=== PATIENT | male | born 2000 | race Caucasian/White ===

== ENCOUNTER 2021-10-26 06:26 | Emergency (ER) | payer SELFPAY ==
[~2021-10-26] VITALS: Ht 195.6 cm; Wt 127.0 kg
--- NOTE | 2021-10-26 08:00 | NUR ---
[id number]. L KNEE PAIN AND SWELLING S/P TRIP AND FALL. DENIED HT. NO APPARENT DEFORMITY NOTED. WILL CONTINUE TO MONITOR THE PATIENT.
[2021-10-26] MEDS ORDERED: HYDR-4303 PO (08:37)
[2021-10-26] MEDS ORDERED: HYDROCODONE/APAP 5/325MG TABLET PO ONE (09:00)
[2021-10-26] MEDS ORDERED: HYDROCODONE/APAP 5/325MG TABLET ONE (09:03)
[2021-10-26 09:42] VITALS: BP 143/73
--- NOTE | 2021-10-26 09:42 | NUR ---
Patient discharged to home in stable condition. Written and verbal after care instructions given. Patient verbalizes understanding of instruction.
== END 2021-10-26 09:42 | disposition home or self-care (01) ==
LOC: ER 06:28
DX: S82.092A Other fracture of left patella, initial encounter for closed fracture (principal); W01.0XXA Fall on same level from slipping, tripping and stumbling without subsequent striking against object, initial encounter; Y93.89 Activity, other specified; Y92.89 Other specified places as the place of occurrence of the external cause; Y99.8 Other external cause status
CPT/HCPCS: 73560-TC